=== PATIENT | female | born 1970 | race Caucasian/White ===

== ENCOUNTER 2020-08-29 07:40 | Outpatient (CLI) | payer OTHER | END 2020-08-29 07:41 | disposition EMS.NT | LOC: EMS 07:40 | PROVIDERS: ATTEND Surgery | DX: R04.1 Hemorrhage from throat (principal); M25.511 Pain in right shoulder ==

== ENCOUNTER 2020-08-29 10:59 | Outpatient (CLI) | payer OTHER ==
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
== END 2020-08-29 11:00 | disposition home or self-care (01) ==
LOC: DI.N 10:59
PROVIDERS: ATTEND Chiropractor
DX: M50.321 Other cervical disc degeneration at C4-C5 level (principal); M51.34 Other intervertebral disc degeneration, thoracic region; M51.37 Other intervertebral disc degeneration, lumbosacral region; M48.07 Spinal stenosis, lumbosacral region

== ENCOUNTER 2023-03-21 07:29 | Outpatient (CLI) | payer BC, OTHER | END 2023-03-21 07:30 | disposition home or self-care (01) | LOC: LAB.N 07:29 | PROVIDERS: ATTEND Naturopath | DX: Z53.9 Procedure and treatment not carried out, unspecified reason (principal) ==

== ENCOUNTER 2023-03-21 07:36 | Outpatient (CLI) | payer OTHER ==
[2023-03-21 11:48] LABS: BASOPHILS % (AUTO) 1.1 %; EOSINOPHILS # (AUTO) 0.3 10^3/uL (0.0-0.7); EOSINOPHILS % (AUTO) 9.1 %; HCT - HEMATOCRIT 43.4 % (37.0-47.0); HGB - HEMOGLOBIN 14.3 g/dL (12.0-16.0); LYMPHOCYTES # (AUTO) 1.4 10^3/uL (1.5-3.5); LYMPHOCYTES % (AUTO) 37.6 %; MEAN CORPUSCULAR HEMOGLOBIN 31.4 pg (27.0-31.0); MEAN CORPUSCULAR HGB CONC 32.9 g/dL (32.0-36.0); MEAN CORPUSCULAR VOLUME 95.2 fL (81.0-99.0); MEAN PLATELET VOLUME 10.4 fL (7.9-10.8); MONOCYTES # (AUTO) 0.2 10^3/uL (0.0-1.0); MONOCYTES % (AUTO) 6.6 %; NEUTROPHILS # (AUTO) 1.7 10^3/uL (1.5-6.6); NEUTROPHILS % (AUTO) 45.3 %; PLT - PLATELET COUNT 200 10^3/uL (130-450); RED BLOOD COUNT 4.56 10^6/uL (4.20-5.40); RED CELL DISTRIBUTION WIDTH 12.4 % (12.0-15.0); WHITE BLOOD COUNT 3.6 x10^3/uL (4.8-10.8)
[2023-03-21 12:04] LABS: ALBUMIN 4.4 g/dL (3.2-5.5); ALBUMIN/GLOBULIN RATIO 1.7 (1.0-2.2); ALKALINE PHOSPHATASE 84 IU/L (42-121); ALT ALANINE AMINOTRANSFERASE 20 IU/L (10-60); AST ASPARTATE AMINOTRANSFERASE 30 IU/L (10-42); BILIRUBIN,TOTAL 1.1 mg/dL (0.2-1.0); BUN - BLOOD UREA NITROGEN 8 mg/dL (6-20); CARBON DIOXIDE - CO2 31 mmol/L (21-32); CHLORIDE 105 mmol/L (101-111); CHOL/HDL RATIO 2.5 (<4.4); CHOLESTEROL 216 mg/dL; CREATININE 0.8 mg/dL (0.6-1.3); GFR - MDRD 76 (>89); GLUCOSE 91 mg/dL (74-104); HDL CHOLESTEROL 86 mg/dL; LDL CHOLESTEROL,CALCULATED 117 mg/dL; LDL/HDL RATIO 1.4 (<4.4); POTASSIUM 3.7 mmol/L (3.5-4.5); SODIUM 140 mmol/L (135-145); TRIGLYCERIDES 65 mg/dL (48-352); VLDL CHOLESTEROL 13 mg/dL
[2023-03-22 16:08] LABS: C-PEPTIDE SERUM 1.4 ng/mL (1.1-4.4); INSULIN 3.8 uIU/mL (2.6-24.9)
== END 2023-03-21 07:37 | disposition home or self-care (01) ==
LOC: LAB.N 07:36
PROVIDERS: ATTEND Naturopath
DX: Z00.00 Encounter for general adult medical examination without abnormal findings (principal)
CPT/HCPCS: 36415; 80053; 80061; 82172; 83525; 83721; 84681; 85025